=== PATIENT | male | born 1945 | race Caucasian/White ===

== ENCOUNTER 2017-07-02 19:09 | Emergency (ER) | payer MEDICARE ==
[2013-10-26 09:32] VITALS: BMI 22.2
[~2017-07-02 19:09] MED LIST: HEPARIN 2525 K U/250 IV; NITRO-BID60 GM TP; NITROSTAT0.4 MG SL; SALINE FLUSH10 ML IV
== END 2017-07-02 21:47 | disposition home or self-care (01) ==
LOC: D.ER 19:09
DX: S06.0X0A Concussion without loss of consciousness, initial encounter (principal); V43.52XA Car driver injured in collision with other type car in traffic accident, initial encounter; Y93.89 Activity, other specified; Y92.410 Unspecified street and highway as the place of occurrence of the external cause; S20.219A Contusion of unspecified front wall of thorax, initial encounter; S16.1XXA Strain of muscle, fascia and tendon at neck level, initial encounter; F17.200 Nicotine dependence, unspecified, uncomplicated

== ENCOUNTER 2017-09-08 05:47 | Day surgery (SDC) | payer MEDICARE ==
[~2017-09-08] VITALS: Ht 175.3 cm; Wt 68.2 kg
--- NOTE | ~2017-09-08 | OP ---
PATIENT NAME: BRIAN CRUZ MEDICAL RECORD: [id number] :49 LOCATION:D.OPS ADMISSION DATE: SURGEON: JOVON LINDER MD DATE OF OPERATION: 09/08/2017 PREOPERATIVE DIAGNOSES: 1. Recurrent right inguinal hernia. 2. Chronic obstructive pulmonary disease. 3. Coronary artery disease. POSTOPERATIVE DIAGNOSES: 1. Recurrent right inguinal hernia. 2. Chronic obstructive pulmonary disease. 3. Coronary artery disease. PROCEDURE IN DETAIL: Right inguinal hernia repair with medium PHS mesh. SURGEON: Jovon Linder MD LACING CUTTER: Nurys Hurd REPORT OF OPERATION: The patient's right groin was prepped and draped in sterile fashion. An oblique incision was made above the inguinal ligament. Electrocautery was used to dissect through the subcutaneous tissues down to the external oblique fascia. This fascia was opened up to the external ring using electrocautery. A [place] was then placed around the spermatic cord. The patient had an indirect hernia defect. This was dissected free from the spermatic cord and then placed back into the abdominal cavity. I made an opening at the base of the inguinal floor and opened up the preperitoneal space of [place]. A medium PHS mesh was inserted and then sutured down on all 4 sides using multiple interrupted 0 Vicryls. I looked around for the ilioinguinal nerve and it was never found. The wound was then irrigated out with normal saline and care was taken to assure there was no sign of any active bleeding. At this point, the external oblique fascia was closed with running 2-0 Vicryl, Titi's was closed with interrupted 3-0 Vicryl, and the skin was closed with running subcutaneous 5-0 Monocryl. A 10 mL of 0.25% Marcaine with epinephrine was infused into the surrounding tissues and wounds were dressed appropriately. COMPLICATIONS: None. CONDITION: Stable. ANESTHESIA: General endotracheal and local. BLOOD LOSS: Minimal. TRANSINT:[id number] Voice Confirmation ID: [id number] DOCUMENT ID: [id number] OPERATIVE REPORT [id number] BRIAN CRUZ JOVON LINDER MD at 1418 CC: ROXANA FROST [id number] DICTATION DATE: 09/08/17903 COLLECTION DEVELOPMENT LIBRARIAN: 09/08/17 09 [facility] [address] [facility] [facility] [place] [address]
[~2017-09-08 05:47] MED LIST changes: +ACETAMINOP160 MG/5 M PO; +SYMBICORT 80-10.2 GM INH
[2017-09-08 06:05] LABS: BASOPHILS 0.2 % (0-2); EOSINOPHILS 4.7 % (0-7); HEMATOCRIT 40.5 % (42.0-54.0); HEMOGLOBIN 13.4 g/dL (13.5-17.5); IMMATURE GRANULOCYTES 0.2 % (0-5); LYMPHOCYTES 23.5 % (15-50); MCH 29.9 pg (26.0-34.0); MCHC 33.1 g/dL (31.0-37.0); MCV 90.4 fL (80.0-100.0); MEAN PLATELET VOLUME 10.4 fL (7.4-10.4); MONOCYTES 14.2 % (2-11); NEUTROPHILS 57.2 % (40-80); PLATELET COUNT 165 10x3/uL (130-400); RBC 4.48 10x6/uL (4.20-6.10); RDW 13.3 % (11.5-14.5)
[2017-09-08] MEDS ORDERED: SYMBICORT 16010.2 GM INH (07:22)
[2017-09-08] MEDS ORDERED: PROAIR HFA8.5 GM INH (07:23)
[2017-09-08] MEDS ORDERED: ACETAMINOPHEN500 M1 PO (07:24)
[2017-09-08 07:28] VITALS: BP 156/97; BMI 24.1
[2017-09-08 07:34] LABS: ANION GAP 14.2 mmol/L (8-16); CALCIUM 8.6 mg/dL (8.5-10.1); CARBON DIOXIDE 26.1 mmol/L (21.0-32.0); CREATININE - SERUM 1.3 mg/dL (0.6-1.3); POTASSIUM - SERUM 4.3 mmol/L (3.5-5.1)
[2017-09-08] MEDS ORDERED: HYDROCODONE-APA1 TAB PO (09:01)
[2017-09-08 20:00] VITALS: BP 108/64
[2017-09-09 00:59] VITALS: BP 108/64; Ht 175.3 cm; Wt 68.2 kg
[2017-09-09 06:05] VITALS: BP 116/63
[2017-09-09 07:44] VITALS: BP 122/67
== END 2017-09-09 10:00 | disposition home or self-care (01) ==
LOC: D.MS 05:47 → D.OPS 05:47 → D.MS 18:36 → D.OPS 09-09 10:00
PROVIDERS: Surgery
DX: K40.91 Unilateral inguinal hernia, without obstruction or gangrene, recurrent (principal); Z01.812 Encounter for preprocedural laboratory examination; J44.9 Chronic obstructive pulmonary disease, unspecified; I25.10 Atherosclerotic heart disease of native coronary artery without angina pectoris

== ENCOUNTER 2020-08-13 12:49 | Emergency (ER) | payer MEDICARE ==
[~2020-08-13] VITALS: Ht 175.3 cm; Wt 86.4 kg
[~2020-08-13 12:49] MED LIST changes: +ACETAMINOPHEN500 M1 PO; +HYDROCODONE-APA1 TAB PO; +PROAIR HFA8.5 GM INH; +SYMBICORT 16010.2 GM INH
[2020-08-13 13:39] VITALS: Ht 175.3 cm; Wt 86.4 kg
[2020-08-13 14:27] LABS: BASOPHILS 0.6 % (0-2); EOSINOPHILS 2.2 % (0-7); HEMOGLOBIN 13.1 g/dL (13.5-17.5); LYMPHOCYTES 10.7 % (15-50); MCH 29.3 pg (26.0-34.0); MCHC 32.6 g/dL (31.0-37.0); MCV 89.8 fL (80.0-100.0); MEAN PLATELET VOLUME 8.4 fL (7.4-10.4); MONOCYTES 9.7 % (2-11); NEUTROPHILS 76.8 % (40-80); PLATELET COUNT 164 10x3/uL (130-400); RBC 4.46 10x6/uL (4.20-6.10); RDW 13.9 % (11.5-14.5)
[2020-08-13 14:29] LABS: CALC OSMOLALITY 286 mosm/kg (275-300); CALCIUM 8.5 mg/dL (8.5-10.1); CARBON DIOXIDE 26.6 mmol/L (21.0-32.0); CHLORIDE - SERUM 106 mmol/L (98-107); CREATININE - SERUM 1.5 mg/dL (0.6-1.3); GLUCOSE 114 mg/dL (74-106); POTASSIUM - SERUM 4.4 mmol/L (3.5-5.1); SODIUM 142 mmol/L (136-145); UREA NITROGEN 22 mg/dL (7-18); eGFR NON AFRICAN AMERICAN 49 mL/min (90-120)
[2020-08-13 14:46] LABS: ALBUMIN 3.9 g/dL (3.4-5.0); ALKALINE PHOSPHATASE 48 U/L (30-120); ALT (SGPT) 21 U/L (10-68); CKMB 0.5 U/L (0.0-3.6); CREATINE KINASE 97 UL (21-232); MAGNESIUM - SERUM 2.4 mg/dL (1.8-2.4); PROTEIN - SERUM 7.6 g/dL (6.4-8.2)
[2020-08-13 14:55] LABS: TROPONIN-I < 0.017 ng/mL (0.000-0.060)
[2020-08-13 15:20] VITALS: BP 168/87
[2020-08-13] MEDS ORDERED: NAPROXEN250 MG PO (17:11)
[2020-08-13] MEDS ORDERED: ULTRAM50 MG PO (17:11)
== END 2020-08-13 17:20 | disposition home or self-care (01) ==
LOC: D.ER 12:49
PROVIDERS: Family Medicine
DX: R55 Syncope and collapse (principal); M51.36 Other intervertebral disc degeneration, lumbar region; J45.909 Unspecified asthma, uncomplicated; Z95.1 Presence of aortocoronary bypass graft